=== PATIENT | female | born 1995 | race Caucasian/White ===

== ENCOUNTER → 2018-08-29 | Outpatient (REF) | payer OTHER | LOC: M SFHCLERA 18:26 | PROVIDERS: ATTEND Nurse Practitioner Family | DX: R53.81 Other malaise (principal) ==

== ENCOUNTER 2019-03-22 19:42 | Emergency (ER) | payer OTHER ==
[~2019-03-22] VITALS: Ht 165.1 cm; Wt 59.6 kg
[2019-03-22 19:43] VITALS: BP 168/82
[2019-03-22] MEDS ORDERED: SERT25TA85 PO (19:48)
[2019-03-22] MEDS ORDERED: NAPR-837 PO (20:25)
[2019-03-22] MEDS ORDERED: CYCL10TA PO (20:25)
[2019-03-22] MEDS ORDERED: CYCLOBENZAPRINE 10 MG TAB PO ONE (20:30)
[2019-03-22] MEDS ORDERED: NAPROXEN 250 MG TAB PO ONE (20:30)
== END 2019-03-22 20:39 | disposition home or self-care (01) ==
LOC: M ED 19:42
DX: S39.012A Strain of muscle, fascia and tendon of lower back, initial encounter (principal); M62.830 Muscle spasm of back; X50.1XXA Overexertion from prolonged static or awkward postures, initial encounter; Y92.9 Unspecified place or not applicable; Y93.9 Activity, unspecified; Y99.9 Unspecified external cause status; F32.9 Major depressive disorder, single episode, unspecified; Z79.899 Other long term (current) drug therapy

== ENCOUNTER → 2019-10-05 | Outpatient (REF) | payer OTHER ==
[~2019-10-05] MED LIST: CYCL10TA PO; FLUTISP; NAPR-837 PO; SERT25TA85 PO; SUDO30TA; VENL75CA47
== END ==
LOC: M SFHCLERA 17:16
PROVIDERS: ATTEND Nurse Practitioner Family
DX: R53.81 Other malaise (principal); R05 Cough; R50.9 Fever, unspecified; R51 Headache

== ENCOUNTER 2019-10-08 11:11 | Emergency (ER) | payer OTHER ==
[~2019-10-08] VITALS: Ht 165.1 cm; Wt 61.0 kg
[~2019-10-08 11:11] MED LIST changes: -FLUTISP; -SUDO30TA; -VENL75CA47
[2019-10-08] MEDS ORDERED: VENL75CA47 (11:17)
[2019-10-08] MEDS ORDERED: SUDO30TA (11:17)
[2019-10-08] MEDS ORDERED: FLUTISP (11:17)
[2019-10-08 11:56] LABS: BASO # 0.1 10^3/uL (0.0-0.2); BASO % 0.7 % (0.0-1.0); EOS # 0.2 10^3/uL (0.0-0.5); EOS % 1.9 % (0.0-3.0); HEMATOCRIT 40.4 % (36.0-47.0); HEMOGLOBIN 13.5 g/dl (12.0-15.5); LYMPH % 21.4 % (24.0-44.0); MEAN CORPUSCULAR HEMOGLOBIN 29.4 pg (27.0-33.0); MEAN CORPUSCULAR HGB CONC 33.4 g/dl (32.0-36.5); MONO # 0.9 10^3/uL (0.0-0.8); MONO % 9.8 % (0.0-5.0); NEUTROPHILS # 6.2 10^3/uL (1.5-8.5); NEUTROPHILS % 65.9 % (36.0-66.0); PLATELET COUNT, AUTOMATED 271 10^3/uL (150-450); RED BLOOD COUNT 4.59 10^6/uL (4.00-5.40); WHITE BLOOD COUNT 9.5 10^3/uL (4.0-10.0)
[2019-10-08 12:11] LABS: INFLUENZA A AMPLIFICATION NEGATIVE (NEGATIVE); INFLUENZA B AMPLIFICATION NEGATIVE (NEGATIVE)
[2019-10-08 12:27] LABS: BLOOD UREA NITROGEN 4 MG/DL (7-18); CALCIUM LEVEL 9.7 MG/DL (8.5-10.1); CARBON DIOXIDE LEVEL 26 MEQ/L (21-32); CHLORIDE LEVEL 108 MEQ/L (98-107); CREATININE FOR GFR 0.81 MG/DL (0.55-1.30); GLOMERULAR FILTRATION RATE > 60.0 (>60); GLUCOSE, FASTING 100 MG/DL (70-100); POTASSIUM SERUM 4.2 MEQ/L (3.5-5.1); SODIUM LEVEL 140 MEQ/L (136-145)
[2019-10-08 13:11] VITALS: BP 147/70
--- NOTE | 2019-10-08 16:35 | REP ---
REASON: Cough and fever. PRIORS: None. TWO-VIEW CHEST: FINDINGS: The superior mediastinal structures are midline. The cardiac silhouette is unremarkable in size, shape, and position. The diaphragmatic surfaces of the lungs are regular, and the costophrenic angles are clear. The pulmonary monzon are clear. The imaged osseous structures are intact. IMPRESSION: There is no acute cardiopulmonary disease. Electronically Signed by Ramin Montaño DO 10/08/2019 04:48 P
== END 2019-10-08 13:56 | disposition home or self-care (01) ==
LOC: M ED 11:11
DX: J06.9 Acute upper respiratory infection, unspecified (principal); B34.1 Enterovirus infection, unspecified; J45.909 Unspecified asthma, uncomplicated; F33.1 Major depressive disorder, recurrent, moderate; Z79.899 Other long term (current) drug therapy

== ENCOUNTER 2019-11-19 22:31 | Emergency (ER) | payer OTHER ==
[~2019-11-19] VITALS: Ht 165.1 cm; Wt 56.8 kg
[~2019-11-19 22:31] MED LIST changes: +CYCL-707 PO; -CYCL10TA PO; +FLUTISP; +SUDO30TA; +VENL75CA47
[2019-11-19] MEDS ORDERED: CIPR0.3S (22:37)
[2019-11-19] MEDS ORDERED: ALL10TAB29 (22:37)
[2019-11-19] MEDS ORDERED: ONDANSETRON 4 MG ORAL DISINTEGRATING TAB PO ONE (23:00)
[2019-11-19 23:20] LABS: BASO # 0.1 10^3/uL (0.0-0.2); BASO % 0.5 % (0.0-1.0); EOS # 0.1 10^3/uL (0.0-0.5); EOS % 0.5 % (0.0-3.0); HEMATOCRIT 39.6 % (36.0-47.0); HEMOGLOBIN 13.2 g/dl (12.0-15.5); LYMPH # 1.8 10^3/uL (1.5-5.0); LYMPH % 18.8 % (24.0-44.0); MEAN CORPUSCULAR HEMOGLOBIN 29.1 pg (27.0-33.0); MEAN CORPUSCULAR HGB CONC 33.3 g/dl (32.0-36.5); MEAN CORPUSCULAR VOLUME 87.4 fl (80.0-96.0); MONO % 10.2 % (0.0-5.0); NEUTROPHILS # 6.5 10^3/uL (1.5-8.5); NEUTROPHILS % 69.7 % (36.0-66.0); PLATELET COUNT, AUTOMATED 239 10^3/uL (150-450); RED BLOOD COUNT 4.53 10^6/uL (4.00-5.40); WHITE BLOOD COUNT 9.3 10^3/uL (4.0-10.0)
[2019-11-19 23:44] LABS: ALBUMIN 3.8 GM/DL (3.2-5.2); BILIRUBIN,DIRECT 0.1 MG/DL (0.0-0.2); BILIRUBIN,TOTAL 0.3 MG/DL (0.2-1.0); TOTAL PROTEIN 6.6 GM/DL (6.4-8.2)
[2019-11-19] MEDS ORDERED: ONDA4TAB6 PO (23:51)
[2019-11-20 00:14] VITALS: BP 141/87
== END 2019-11-20 00:21 | disposition home or self-care (01) ==
LOC: M ED 22:31
DX: R11.2 Nausea with vomiting, unspecified (principal); Z32.01 Encounter for pregnancy test, result positive; F32.9 Major depressive disorder, single episode, unspecified; Z79.899 Other long term (current) drug therapy
CPT/HCPCS: 36415; 80047; 80076; 81001; 83690; 84702; 85025; 87086; 99283; Q0162

== ENCOUNTER 2020-06-22 10:13 | Outpatient (CLI) | payer OTHER ==
[~2020-06-22] VITALS: Ht 167.6 cm; Wt 64.7 kg
[~2020-06-22 10:13] MED LIST changes: +CETI-24; +CIPR0.3S6; +CLAR10CA3 PO; +IBUP-1022 PO; +MACR100C43 PO; +NICO21PAT TD; +ONDA4TAB6 PO; +PATIENT COMMENT; +SERT-138 PO; +SERT50TA29 PO; -SUDO30TA; +SUDO30TA2; +TRIA1CR80 TOP; +sertraline PO
[2020-06-22 10:43] VITALS: BP 125/82
[2020-06-22 10:54] VITALS: BP 123/74
[2020-06-22 11:19] VITALS: BP 135/77
[2020-06-22 11:51] LABS: HEMATOCRIT 36.5 % (36.0-47.0); HEMOGLOBIN 11.8 g/dl (12.0-15.5); MEAN CORPUSCULAR HEMOGLOBIN 29.7 pg (27.0-33.0); MEAN CORPUSCULAR HGB CONC 32.3 g/dl (32.0-36.5); MEAN CORPUSCULAR VOLUME 91.9 fl (80.0-96.0); PLATELET COUNT, AUTOMATED 190 10^3/uL (150-450); RED BLOOD COUNT 3.97 10^6/uL (4.00-5.40); WHITE BLOOD COUNT 10.4 10^3/uL (4.0-10.0)
[2020-06-22 12:05] VITALS: BP 127/81
--- NOTE | 2020-06-22 12:05 | REP ---
INDICATION: Acute RUQ pain. 33 weeks . COMPARISON: None. TECHNIQUE: Real time chin scale ultrasound examination using curved array transducer. FINDINGS: Liver is normal in contour, size, and echogenicity without focal hepatic lesions identified. Pancreas is incompletely evaluated due to interposed bowel gas. The gallbladder is normal and without gallstones, wall thickening, or pericholecystic fluid. No biliary ductal dilatation is appreciated and the common bile duct measures 2.4 mm diameter. Right kidney is normal in reniform shape without hydronephrosis and measures 10.9 x 5.2 x 6.1 cm. No ascites in the visualized right upper quadrant. Live advanced gestation. heart rate equals 131 BPM. IMPRESSION: Normal limited right upper quadrant ultrasound <Electronically signed by Kevin Ly > 06/22/20 1202
[2020-06-22 12:25] LABS: ALBUMIN 2.7 GM/DL (3.2-5.2); ALT/SGPT 7 U/L (12-78); BILIRUBIN,TOTAL 0.3 MG/DL (0.2-1.0); BLOOD UREA NITROGEN 2 MG/DL (7-18); CALCIUM LEVEL 9.1 MG/DL (8.5-10.1); CARBON DIOXIDE LEVEL 28 MEQ/L (21-32); CHLORIDE LEVEL 108 MEQ/L (98-107); CREATININE FOR GFR 0.66 MG/DL (0.55-1.30); GLOMERULAR FILTRATION RATE > 60.0 (>60); GLUCOSE, FASTING 86 MG/DL (70-100); POTASSIUM SERUM 3.4 MEQ/L (3.5-5.1); SODIUM LEVEL 142 MEQ/L (136-145); TOTAL PROTEIN 6.1 GM/DL (6.4-8.2)
[2020-06-22] MEDS ORDERED: MAPA500T2 PO (12:34)
[2020-06-22] MEDS ORDERED: FERR325T3 PO (12:36)
[2020-06-22] MEDS ORDERED: VITA100T59 PO (12:36)
[2020-06-22] MEDS ORDERED: PRENTAB9 PO (12:36)
--- NOTE | 2020-06-22 12:51 | IPNPDOC ---
Text Note Date of Service The patient was seen on 06/22/20. NOTE 25 yo at ~34 weeks gestation presents to L&D with the complaint of RUQ pain and n/v since yesterday evening. She reports eating turkey and chili and cheese and then experiencing pain along with vomiting. This has since not improved. She is tolerating water without issues. She denies any fevers/chills, SOB, chest pain, dysuria, or constipation/diarrhea. She also denies any obstetric complaints to include bleeding, leakage of fluid, contractions, or decreased movement. Upon further questioning she reports significant GERD throughout her third trimester that is not being relieved by Tums. Vitals - VSS, afebrile, normotensive, non tachycardic General - AAOX3, sitting up in bed, NAD, pleasant and conversant Abdomen - Gravid uterus, no fundal tenderness. Mild tenderness to palpation in RUQ. No rebound or guarding. Negative Mackenzie's sign Extremities - No edema FHR: Cat I with moderate variability, +accels, no decels Labs: Test 06/22/20 11:41 Blood Urea Nitrogen 2 MG/DL (7-18) L Creatinine 0.66 MG/DL (0.55-1.30) Glomerular Filtration Rate > 60.0 (>60) Fasting Glucose 86 MG/DL (70-100) Calcium Level 9.1 MG/DL (8.5-10.1) Total Bilirubin 0.3 MG/DL (0.2-1.0) Aspartate Amino Transf (AST/SGOT) 14 U/L (7-37) Alanine Aminotransferase (ALT/SGPT) 7 U/L (12-78) L Total Protein 6.1 GM/DL (6.4-8.2) L Sodium Level 142 MEQ/L (136-145) Albumin 2.7 GM/DL (3.2-5.2) L Alkaline Phosphatase 164 U/L (45-117) H Potassium Level 3.4 MEQ/L (3.5-5.1) L Chloride Level 108 MEQ/L (98-107) H Carbon Dioxide Level 28 MEQ/L (21-32) Anion Gap 6 MEQ/L (8-16) L Laboratory Tests 06/22/20 11:41 Imaging: NAME: NIVIA PECK DATE OF : 1995 AGE: 25 SEX: F REPORT #: [id number] ROOM: [facility] TECHNOLOGIST: [facility] DOCTOR: NIKHIL MEYERS DO Ordered for Date&Time: 06/22/20 1130 cc: [~ rep ct ivnm] Service Date&Time: 06/22/20 1159 EXAMINATION REQUESTED: GALLBLADDER US REASON FOR PATIENT VISIT: HEADACHE; N/V; ELEVATED BP; PAIN IN RIB REASON FOR EXAM/COMMENT: Acute RUQ pain. 33 weeks . INDICATION: Acute RUQ pain. 33 weeks . COMPARISON: None. TECHNIQUE: Real time chin scale ultrasound examination using curved array transducer. FINDINGS: Liver is normal in contour, size, and echogenicity without focal hepatic lesions identified. Pancreas is incompletely evaluated due to interposed bowel gas. The gallbladder is normal and without gallstones, wall thickening, or pericholecystic fluid. No biliary ductal dilatation is appreciated and the common bile duct measures 2.4 mm diameter. Right kidney is normal in reniform shape without hydronephrosis and measures 10.9 x 5.2 x 6.1 cm. No ascites in the visualized right upper quadrant. Live advanced gestation. heart rate equals 131 BPM. IMPRESSION: Normal limited right upper quadrant ultrasound A/P: Suspect GERD and indigestion contributing to symptoms. No exam, laboratory, or imaging evidence of any acute intrabdominal process. Script for omeprazole ordered at patient's pharmacy of choice. Reassuring status. patient discharged home with return precautions. All questions answered. Nikhil Meyers DO VS,Barbara, I+O VS, Barbara, I+O Laboratory Tests 06/22/20 11:41 Vital Signs Date Time Temp Pulse Resp B/P (MAP) Pulse Ox O2 Delivery O2 Flow Rate FiO2 06/22/20 12:05 84 18 127/81 (96) 06/22/20 10:43 98.0 NIKHIL MEYERS DO Jun 22, 2020 12:51
== END 2020-06-22 12:40 | disposition home or self-care (01) ==
LOC: M LDO 10:13
PROVIDERS: ATTEND Obstetrics & Gynecology
DX: O26.893 Other specified pregnancy related conditions, third trimester (principal); R10.11 Right upper quadrant pain; R11.2 Nausea with vomiting, unspecified; R12 Heartburn; Z3A.33 33 weeks gestation of pregnancy
CPT/HCPCS: 36415; 59025; 76705; 80053; 85027; G0378; G0463

== ENCOUNTER 2020-07-10 20:09 | Outpatient (CLI) | payer OTHER ==
[~2020-07-10] VITALS: Ht 167.6 cm; Wt 65.7 kg
[~2020-07-10 20:09] MED LIST changes: +FERR325T3 PO; +MAPA500T2 PO; +PRENTAB9 PO; +VITA100T59 PO
[2020-07-10] MEDS ORDERED: PROMETHAZINE INJ 25 MG/ML VIAL (J2550) IV ONE (23:45)
[2020-07-10] MEDS ORDERED: BUTORPHANOL 2 MG/ML INJ (J0595) IV ONE (23:45)
--- NOTE | 2020-07-10 23:57 | IPNPDOC ---
Text Note Date of Service The patient was seen on 07/10/20. NOTE 25 yo at 37+3 weeks gestation presented to L&D with regular, painful contractions along with pelvic pressure. She denies any vaginal bleeding or leakage of fluid. She endorses excellent movement. 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 In addition, she has depression for which she sees behavioral health and for which she was on effexor at one point. She is GBS negative. Chaperoned by Yessica Ramos Vitals - VSS, afebrile, normotensive, non tachycardic General - AAOX3, sitting up in bed, uncomfortable with contractions Abdomen - Gravid uterus, no fundal tenderness Cervix - 3/50/-3. Repeat exam 2 hours later unchanged at 3/50/-3. FHR tracing - Cat I with moderate variability, +accels, no decels. Contractions regular at Q1-2 minutes, persisting for >2 hours Not actively in labor at this time due to her unchanged cervix. However, Edith is quite uncomfortable and sindy Q1-2 minutes. No clinical evidence of placental abruption (no bleeding, no abdominal pain or rigidity, no recent trauma) however this is also on the differential. Plan will be to observe overnight and administer IV analgesia (stadol) for therapeutic rest. Edith understands and agrees with plan of care. Repeat cervical exam at 0645 demonstrated no change. She remains 3/50/-3. Contractions have spaced considerably on toco. She has no acute pain. FHR has remained Cat I throughout her stay. Though there was decrease in baseline likely secondary to stadol. Will discharge home with return precautions. All patient questions answered. DO LUIGI Massey CHRISTOPHER J. DO Jul 10, 2020 23:57
[2020-07-11] MEDS ORDERED: LR 1,000 ML IV SCH
== END 2020-07-11 06:58 | disposition home or self-care (01) ==
LOC: M LDO 20:09
PROVIDERS: ATTEND Obstetrics & Gynecology
DX: O47.1 False labor at or after 37 completed weeks of gestation (principal); Z3A.37 37 weeks gestation of pregnancy
CPT/HCPCS: 59025; 96374; 96375; G0378; G0463; J0595

== ENCOUNTER 2020-07-13 12:32 | Outpatient (CLI) | payer OTHER ==
[~2020-07-13] VITALS: Ht 165.1 cm; Wt 66.7 kg
[2020-07-13 12:46] VITALS: BP 137/76
[2020-07-13] MEDS ORDERED: ANTA550C PO (12:52)
[2020-07-13] MEDS ORDERED: ANTA1CHW6 PO (12:52)
[2020-07-13 13:33] VITALS: BP 128/71
--- NOTE | 2020-07-13 13:50 | IPNPDOC ---
Obstetrical Progress Note Date of Service Jul 13, 2020 Subjective 25yo anjel [id number] @37+6. Presenting with c/o decreased movement, stating last movement at 0400. Denies bleeding, LOF, States irregular cramping. Objective Vital Signs Date Time Temp Pulse Resp B/P (MAP) Pulse Ox O2 Delivery O2 Flow Rate FiO2 07/13/20 12:46 97.5 79 16 137/76 (96) Assessment Heart Rate (FHR): 140 Variability: Moderate Accelerations: Positive Decelerations: None Tocometer Contractions: Yes Frequency: irregular Duration: less than 60 seconds Strength: palpated as mild Sterile Vaginal Examination Postion/Presentation: Cephalic presentation Assessment and Plan Age: 25 : 2 Term: 1 Pre-term: 0 Abortions: 0 Livin Weeks & Days 37+6 Status: Reassuring Group B Streptococcus: Negative Additional Comments 25yo anjel [id number] @37+6 called with concern for decreased movement, denies bleeding, lof, states irregular cramping KATHERIN 10.46 cephalic presentation RNST, irregular cramping, denied need for cervical exam Suspected condition not found [id number] Discharged to home with labor precautions, expressed understanding of reasons to return for care and movement counts. DEINSE ESTEVES CNM Jul 13, 2020 13:49
== END 2020-07-13 13:45 | disposition home or self-care (01) ==
LOC: M LDO 12:32
PROVIDERS: ATTEND Registered Nurse
DX: O36.8130 Decreased fetal movements, third trimester, not applicable or unspecified (principal); Z3A.37 37 weeks gestation of pregnancy
CPT/HCPCS: 59025; G0378; G0463

== ENCOUNTER 2020-07-16 14:28 | Outpatient (CLI) | payer OTHER ==
[~2020-07-16] VITALS: Ht 165.1 cm; Wt 65.2 kg
[~2020-07-16 14:28] MED LIST changes: +ANTA1CHW6 PO; +ANTA550C PO
[2020-07-16 14:41] VITALS: BP 132/81
--- NOTE | 2020-07-16 15:22 | IPNPDOC ---
Obstetrical Progress Note Date of Service Jul 16, 2020 Subjective 25yo at 38+2wks presenting for c/o ctx's since 0430 today. Denies LOF, DFM, or VB. Objective Vital Signs Date Time Temp Pulse Resp B/P (MAP) Pulse Ox O2 Delivery O2 Flow Rate FiO2 07/16/20 14:41 98.8 96 18 132/81 (98) Assessment Heart Rate (FHR): 140 Variability: Moderate Accelerations: Positive Decelerations: None Heart Rate Tracing: Category I Tocometer Contractions: Yes Frequency: irregular Sterile Vaginal Examination Dilation: 3 cm Effacement (%): 50% Station: -2 Cervical Consistency: Soft Cervical Position: Posterior Postion/Presentation: Cephalic presentation Assessment and Plan Status: Reassuring Additional Comments 25yo at 38+2wks presenting for c/o ctx's and found to have irregular ctx pattern on tocometry. status reassuring with reactive NST. SVE stable since last check 1 week ago. Patient not in active labor. Counseled on hydration and rest. Discussed FKCs and strict labor precautions. Patient to f/u in clinic tomorrow for scheduled YOLI appt. All questions answered. DANTE SCHULZ DO Jul 16, 2020 15:22
== END 2020-07-16 15:22 | disposition home or self-care (01) ==
LOC: M LDO 14:28
DX: O47.1 False labor at or after 37 completed weeks of gestation (principal); Z3A.38 38 weeks gestation of pregnancy
CPT/HCPCS: 59025; G0378; G0463

== ENCOUNTER 2020-07-18 19:52 | Outpatient (CLI) | payer OTHER ==
[~2020-07-18] VITALS: Ht 165.1 cm; Wt 65.3 kg
[2020-07-18] MEDS ORDERED: PROMETHAZINE INJ 25 MG/ML VIAL (J2550) IM ONE (22:45)
[2020-07-18] MEDS ORDERED: MORPHINE 10 MG/ML 1ML VIAL (J2270) IM ONE (22:45)
[2020-07-19] MEDS ORDERED: FAMO20TA PO (15:33)
== END 2020-07-19 01:03 | disposition home or self-care (01) ==
LOC: M LDO 19:52
PROVIDERS: ATTEND Obstetrics & Gynecology
DX: O42.92 Full-term premature rupture of membranes, unspecified as to length of time between rupture and onset of labor (principal); Z3A.39 39 weeks gestation of pregnancy
CPT/HCPCS: 59025; 96372; G0378; G0463; J2270

== ENCOUNTER 2020-07-19 14:42 | Inpatient (IN) | payer OTHER ==
[~2020-07-19] VITALS: Ht 165.1 cm; Wt 63.8 kg
[2020-07-19] VITALS (21 sets, daily range): BP systolic 108–145; BP diastolic 60–90
[2020-07-19] MEDS ORDERED: LACTATED RINGER'S 1000 ML IV STA (15:07)
[2020-07-19] MEDS: LR 1,000 ML IV SCH ×3 (15:07→23:07)
[2020-07-19] MEDS ORDERED: OXYTOCIN DRIP 30 UNITS in IV 1 EA IV SCH (15:15)
--- NOTE | 2020-07-19 15:32 | HPEPDOC ---
Obstetrical History & Physical General Date of Admission 07/19/2020 History of Present Illness 25 yo @ 38+5 by 1ST T us who is admitted for SROM at 1300 with clear fluids. patient has been sindy now for 24hrs, but has been 3 cm for 3 days. she reports regular movements and denies vaginal bleeding. she has no other concerns. Information Provided By: Patient Care Care: Good Care Dating Final EDC: Jul 28, 2020 Final EDC by: 1st trimester (US) LMP: Oct 13, 2019 1st Trimester Date: Dec 25, 2019 Weeks + Days: -9 (9w1d) Estimated Date of Confinement: Jul 28, 2020 EGA at Admission: 3 (38w5d) Antepartum Course Diagnos(e)s 1. Depression- did not take meds during 2. CF mutation on screen- FOB not tested ( inform peds after delivery) 3. Had chlamydia that was treated- NIKKI negative x3( per patient) Height (inches): 65 Pre- weight (lbs.): 120 Admission Weight (lbs.): 145 Change in Weight (lbs.): 25 Past Medical History Past Obstetrical History : Past Obstetrical History: Multigravida Date of Delivery: May 04, 2006 Type of Delivery: Spontaneous Vaginal Del. 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[employer] History: No pertinent history, History of STD Past Medical History Medical History Depression Surgical History: Other (LASIX) Family History Significant Family History: No pertinent family hx Social History Marital Status: Family situation: Spouse/partner home Psychosocial History: Depression * Smoker: non-smoker Alcohol: Denies Drugs: denies Abuse Violence Screening Have you been hit/kicked/slapp: No Have you been sexually assault: No Imunizations Tdap status: current Influenza Status: current Allergies Coded Allergies: No Known Allergies (Unverified , 07/13/20) Medications Scheduled Ascorbic Acid (Vitamin C) 100 Mg Tablet, 1 TAB PO DAILY Calcium Carb/Magnesium Hydrox (Antacid Chewable Tablet) 1 Each Tab.chew, 1 CHW PO BID No.137/Iron/Folic Acd ( Vitamin Tablet) 1 Each Tablet, 1 TAB PO DAILY Miscellaneous Medications Ferrous Sulfate (Ferrous Sulfate) 325 Mg Tablet.dr, 325 MG PO Physical Examination Physical Examination GENERAL: Alert and oriented times three. BREAST: . ABDOMEN: Gravid and non-tender to touch., TAUS Cephalic FETUS: Is vertex by sterile vaginal examination and TAUS HEART RATE: Regular rate and rhythm. LUNGS: nORMAL WORK OF BREATHING EXTREMITIES: No edema. SVE: 3//-2, SPEC: POOLING, NITRIZINE POSITIVE Pertinent Laboratoy Data Blood Type: O+ RBC Antibody Screen: Negative HIV: Negative Hepatitis B: Negative Hepatitis C: Unknown Rapid Plasma Reagin: Nonreactive Rubella: Immune Varicella: Immune Chlamydia/Gonorrhea: Positive (HAD 3 NEG NIKKI) Group B Streptococcus: Negative Cystic Fibrosis: Positive (HAS MUTATION, FOB NOT TESTED) Glucose Tolerance Test: 109 Anatomy Ultrasound Ultrasound Date: Mar 11, 2020 Placenta Location: Right Lateral Normal Anatomy: Yes Estimated Weight (grams): 3000 Steroid Therapy Steroid Therapy: No Vaginal Examination Dilation: 3 cm Effacement: 70% Station: -2 Cervical Consistency: Soft Cervical Position: Middle Presentation: Cephalic presentation Assessment Heart Rate (FHR): 130 Variability: Moderate Accelerations: Positive Decelerations: None Tocometer Contractions: Yes Frequency: irregular Duration: less than 60 seconds Strength: palpated as moderate Multi-drug resistant Organism: No history of MDRO Assessment/Plan Assessment 25 yo @ 38+5 by 1ST T us who is admitted for SROM at 1300 with clear fluids. SROM Notable for pooling and positive nitrazine test. Cephalic by us. SVE 3/75/-2. Reactive NST on admission. RH positive, GBS Neg. 1. Depression- did not take meds during 2. CF mutation on screen- FOB not tested ( inform peds after delivery) 3. 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 Diet: clear. Group B Streptococcus (GBS) negative. Labs and intravenous (IV) per unit protocol. Counseled on Pitocin for augmentation of labor Lactated Ringers (LR): Bolus 1000 mL, then at 125 mL/hr. Anticipate normal spontaneous delivery (). C-S as appropriate. Labor and Delivery Counseling REVIEWED CONSENT FOR VAGINAL DELIVERY WHICH IS DELIVERY THROUGH VAGINA. YOU MAY REQUIRE AUGMENTATION WITH PITOCIN YOU MAY REQUIRE EPISIOTOMY TO ALLOW BABY TO DELIVER VAGINALLY WHEN PUSHING BECOMES INEFFECTIVE OR IF DELIVERY NEEDS TO BE EXPEDITED FOR REASONS. CS MAY BE REQUIRED ON URGENT BASIS DUE TO ENVIRONMENT OR MATERNAL REASONS WHEN DELIVERY NEEDS TO BE EXPEDITED. RISKS TO INTERVENTION IS VAGINAL LACERATIONS REPAIR OF EPISIOTOMY CERVICAL REPAIR BOWEL OR BLADDER INJURY RISK OF PP HEMORRHAGE REQUIRE BLOOD TRANSFUSION RISK HYSTERECTOMY RISK ADMISSION NICU, RISK TACHYSYSTOLE RISK OF SCRATCHES , HEMATOMAS , INTRACRANIAL BLEED. PRESENTLY CATEGORY 1 STRIP SAFE TO PROCEED JOHN STUART MD Jul 19, 2020 15:32
[2020-07-19] MEDS ORDERED: FAMO20TA PO (15:33)
[2020-07-19 16:00] LABS: HEMATOCRIT 39.5 % (36.0-47.0); HEMOGLOBIN 12.7 g/dl (12.0-15.5); MEAN CORPUSCULAR HEMOGLOBIN 29.5 pg (27.0-33.0); MEAN CORPUSCULAR HGB CONC 32.2 g/dl (32.0-36.5); MEAN CORPUSCULAR VOLUME 91.9 fl (80.0-96.0); PLATELET COUNT, AUTOMATED 201 10^3/uL (150-450); WHITE BLOOD COUNT 11.4 10^3/uL (4.0-10.0)
[2020-07-19 16:36] LABS: ALBUMIN 2.9 GM/DL (3.2-5.2); ALT/SGPT 11 U/L (12-78); BILIRUBIN,TOTAL 0.6 MG/DL (0.2-1.0); BLOOD UREA NITROGEN 3 MG/DL (7-18); CALCIUM LEVEL 9.2 MG/DL (8.5-10.1); CARBON DIOXIDE LEVEL 23 MEQ/L (21-32); CHLORIDE LEVEL 108 MEQ/L (98-107); CREATININE FOR GFR 0.64 MG/DL (0.55-1.30); GLOMERULAR FILTRATION RATE > 60.0 (>60); GLUCOSE, FASTING 75 MG/DL (70-100); POTASSIUM SERUM 3.3 MEQ/L (3.5-5.1); SODIUM LEVEL 141 MEQ/L (136-145); TOTAL PROTEIN 6.5 GM/DL (6.4-8.2)
[2020-07-19] MEDS ORDERED: FENTANYL 2MCG/ML ROPIVACAINE 0.2% IN 0.9% NACL 100ML IVBAG As Ordered ONE (16:39)
[2020-07-19] MEDS ORDERED: EPIDURAL/PCA KEYS XX PRN (17:00)
[2020-07-19] MEDS: FENTANYL/ROPIVACAINE/NACL BAG 100 ML EPIDURAL SCH (17:00)
[2020-07-19] MEDS ORDERED: LACTATED RINGER'S 1000 ML IV PRN (17:00)
[2020-07-19] MEDS ORDERED: EPIDURAL COMMENT XX SCH (17:00)
[2020-07-19] MEDS ORDERED: NALOXONE INJ 0.4MG/1ML VIAL (J2310 PER 1MG) IV PRN (17:00)
[2020-07-19] MEDS ORDERED: REFRIGERATOR IV KEYS XX PRN (17:00)
[2020-07-19] MEDS ORDERED: diphenhydrAMINE 50MG/ML VIAL (J1200) IV PRN (17:00)
[2020-07-19] MEDS ORDERED: ePHEDrine SULFATE 25 MG/5 ML(5MG/ML) SYRINGE IV PRN (17:00)
[2020-07-19] MEDS ORDERED: ONDANSETRON 4MG/2ML VIAL IV PRN (17:00)
[2020-07-19 19:39] LABS: CREATININE,RANDOM URINE 59.3 MG/DL; TOTAL PROTEIN,RANDOM URINE 18.2 MG/DL (0.0-12.0)
[2020-07-19] MEDS ORDERED: PANTOPRAZOLE SODIUM 40 MG in D5W 50 ML IV SCH (19:45)
[2020-07-19] MEDS ORDERED: PANTOPRAZOLE 40MG VIAL (C9113 PER 1) IV ONE (20:30)
[2020-07-20] VITALS (12 sets, daily range): BP systolic 122–145; BP diastolic 59–86
[2020-07-20] MEDS ORDERED: ACETAMINOPHEN 500 MG TAB PO PRN (00:15)
[2020-07-20] MEDS: LR 1,000 ML IV SCH (00:22)
[2020-07-20] MEDS: FENTANYL/ROPIVACAINE/NACL BAG 100 ML EPIDURAL SCH (00:49)
[2020-07-20] MEDS ORDERED: ANUSOL HC CREAM 30GM TOP PRN (03:15)
[2020-07-20] MEDS ORDERED: BENZOCAINE 20% HEMORRHOIDAL OINTMENT 28GM TUBE TOP PRN (03:15)
[2020-07-20] MEDS ORDERED: DOCUSATE SODIUM 100MG CAPSULE PO PRN (03:15)
--- NOTE | 2020-07-20 03:24 | DNPDOC ---
[facility] Delivery Note Delivery Note DATE OF DELIVERY: 07/20/2020 PREDELIVERY DIAGNOSIS: 38-6/7 weeks' gestation and labor. POST DELIVERY DIAGNOSIS: Delivered. PROCEDURE: Spontaneous vaginal delivery. KETTLE FIRER: Dr. John Stuart ANESTHESIA: Epidural. ESTIMATED BLOOD LOSS: 150 mL. FINDINGS: 8 pound 0 ounce female , Score 8/9, no nuchal cord times . DELIVERY SUMMARY: Patient is a 25-year-old 2 now para 2 who was admitted to labor and delivery for SROM. Baby girl head was delivered without difficulty over intact perineum in straight OA position. The nose and mouth were bulb suctioned. no nuchal cord was noted. The shoulders were then delivered without difficulty. Cord was then clamped x2 and cut by FOB after 1 min of delayed cord clamping. Infant was placed on mother's belly. Pitocin bolus was started. Perineum was inspected and found to have no laceration. small periurethral skin abrasion noted,, and was hemostatic. The placenta was then delivered spontaneously intact. Cord had a 3 vessel cord. EBL was 150mL. The vagina and perineum were reinspected and no further lacerations were found and hemostasis was good. Fundus was firm. Patient tolerated delivery well. JOHN STUART MD Jul 20, 2020 03:24
[2020-07-20] MEDS: IBUPROFEN 800 MG TAB PO PRN ×3 (04:44→23:31)
[2020-07-20] MEDS: PRENATAL VITAMINS CHEWABLE TABLET PO SCH (07:32)
[2020-07-20] MEDS: ACETAMINOPHEN 500 MG TAB PO PRN ×2 (07:32→17:32)
[2020-07-21] MEDS: ACETAMINOPHEN 500 MG TAB PO PRN ×2 (05:19→15:14)
[2020-07-21 06:02] VITALS: BP 117/82
--- NOTE | 2020-07-21 07:13 | IPNPDOC ---
Progress Note Date of Service: Jul 21, 2020 Day#: 1 Progress Note Item Value Date Time White Blood Count 11.4 10^3/uL H 07/19/20 1554 Red Blood Count 4.30 10^6/uL 07/19/20 1554 Hemoglobin 12.7 g/dl 07/19/20 1554 Hematocrit 39.5 % 07/19/20 1554 Mean Corpuscular Volume 91.9 fl 07/19/20 1554 Mean Corpuscular Hemoglobin 29.5 pg 07/19/20 1554 Mean Corpuscular Hemoglobin Concent 32.2 g/dl 07/19/20 1554 Red Cell Distribution Width 14.4 % 07/19/20 1554 Platelet Count 201 10^3/uL 07/19/20 1554 Nucleated Red Blood Cells % (auto) 0.0 % 07/19/20 1554 SUBJECT: 25 year-old 2 now Para 2 status post uncomplicated spontaneous vaginal delivery at 38.5 weeks' at approximately on 07/19/20 of a female 8 pounds 0 ounces 3630 grams) doing well day #1 . She has been ambulating, voiding spontaneously without issue and tolerating regular diet. Breast feeding without issue. Reports lochia is [like a normal period]. Patient is ambulating well. [Reports some cramping with . Denies any pain. Voiding and stooling without difficulty]. OBJECTIVE: VITAL SIGNS: Within normal limits, afebrile. Alert and oriented times three. Breath sounds clear to auscultation. Heart rate: Regular rate and rhythm, no murmurs, rubs or gallops. Abdomen: Fundus firm at U-2. Soft, NTTP. [Minimal] lochia. ASSESSMENT: 25 year-old 2 now Para 2 status post uncomplicated spontaneous vaginal delivery after presenting in active labor with spontaneous rupture of membranes (SROM), delivered 38.5 weeks', doing well on day 1 . Vitals within normal limits, afebrile, hemodynamically stable with no evidence of infection. ADMITTED HISTORY GHTN W/OUT SEVERE FEATURES EPIDURAL FEMALE INFANT 8/9 . PLAN: 1. Discharge to home today. 2. Tylenol and Motrin for pain. 3. Encourage breast feeding and ambulation. 4. CONTROL DISCUSS AT PP VISIT . 5. Routine PP visit in 6 weeks in clinic. 6. Discussed return precautions at length. VS, I&O, 24H, Fishbone Vital Signs/I&O Vital Signs Date Time Temp Pulse Resp B/P (MAP) Pulse Ox O2 Delivery O2 Flow Rate FiO2 07/21/20 06:02 98.2 60 14 117/82 (94) 98 Room Air Zbigniew Burgos MD Jul 21, 2020 07:11
[2020-07-21] MEDS ORDERED: IBUP80TA PO (07:16)
[2020-07-21] MEDS ORDERED: DOK1CAP7 PO (07:16)
[2020-07-21] MEDS: PRENATAL VITAMINS CHEWABLE TABLET PO SCH (07:22)
[2020-07-21] MEDS: IBUPROFEN 800 MG TAB PO PRN (11:54)
== END 2020-07-21 18:30 | disposition home or self-care (01) | DRG 807 ==
LOC: M LDO 14:42 → M LDI 15:09 → M OBS 07-20 05:26
PROVIDERS: ADMIT Obstetrics & Gynecology; ATTEND Obstetrics & Gynecology
PROC: 10E0XZZ Delivery of Products of Conception, External Approach (ICD-10-PCS; principal; 2020-07-20)
DX: O14.04 Mild to moderate pre-eclampsia, complicating childbirth (principal); Z37.0 Single live birth; Z3A.38 38 weeks gestation of pregnancy

== ENCOUNTER 2021-05-12 20:36 | Outpatient (CLI) | payer OTHER ==
[~2021-05-12] VITALS: Ht 165.1 cm; Wt 58.5 kg
[~2021-05-12 20:36] MED LIST changes: +DOK1CAP4 PO; +FAMO20TA PO; +IBUP80TA PO
[2021-05-12 20:54] VITALS: BP 129/68
[2021-05-12] MEDS ORDERED: LR 1,000 ML IV ONE (21:10)
[2021-05-12] MEDS ORDERED: LR 1,000 ML IV SCH (21:10)
[2021-05-12] MEDS ORDERED: CYCLOBENZAPRINE 5MG TABLET PO ONE ×2 (22:30→22:35)
[2021-05-12 22:40] VITALS: BP 128/76
--- NOTE | 2021-05-12 22:56 | IPNPDOC ---
Text Note Date of Service The patient was seen on 05/12/21. NOTE Item Value Date Time Urine Color YELLOW 05/12/212050 Urine Appearance CLOUDY H 05/12/212050 Urine pH 6.0 UNITS 05/12/212050 Urine Specific [place] 1.015 05/12/212050 Urine Protein NEGATIVE mg/dL 05/12/212050 Urine Glucose (UA) NEGATIVE mg/dL 05/12/212050 Urine Ketones NEGATIVE mg/dL 05/12/212050 Urine Blood 2+ H 05/12/212050 Urine Nitrite NEGATIVE 05/12/212050 Urine Bilirubin NEGATIVE 05/12/212050 Urine Urobilinogen 4.0 mg/dL H 05/12/212050 Urine Leukocyte Esterase TRACE H 05/12/212050 Urine WBC (Auto) 5 /HPF H 05/12/212050 Urine RBC (Auto) 117 /HPF H 05/12/212050 Urine Hyaline Casts (Auto) 0 /LPF 05/12/212050 Urine Bacteria (Auto) NEGATIVE 05/12/212050 Urine Squamous Epithelial Cells 5 /HPF 05/12/212050 Urine Amorphous Sediment SMALL H 05/12/212050 Urine Mucus (Auto) SMALL 05/12/21205005/12/21 25 yo LMP 10/03/20 EDC BY EARLY US 11.5 WEEKS 07/10/21 PATIENT NOW 31.5 WEEKS HAD ACUTE ONSET LEFT FLANK PAIN WHILE EATING PAIN SO BAD HAD TO LIE DOWN. FKC NORMAL NO URINARY SYMPTOMS NO HISTORY KIDNEY STONES RISK FACTORS SHORT INTERVAL DEPRESSION NO MEDICATION SCIATICA DOING PT EXAMINATION DISTRESSED RUBBING LEFT LOWER FLANK PAIN SCALE 5/10 REST EXAMINATION NORMAL ATRAUMATIC PERRLA CHEST CLEAR TO BASES HEART NO MURMUR, NORMAL RHYTHM NORMAL RATE BACK SYMMETRIC HARD KNOTED AREA LOWER LEFT AT UPPER END ISCHIAL CREST. NST CATEGORY 1 PLAN HYDRATE IV FLUIDS URINE FOR MICRO AND REFLEX TESTING RENAL US FOR JETS AND STONE IMPRESSION LOW FLANK SPASM IF ALL NEGATIVE FLEXERIL WARM COMPRESS MASSAGE TYLENOL FOR PAIN KEEP APPOINTMENT WEDNESDAY AT OB. REVIEWED RENAL US NO STONE NORMAL URETERAL JETS NORMAL KIDNEYS. PLANNED DISCHARGE UNDELIVERED VS,Fishbone, I+O VS, Fishbone, I+O Vital Signs Date Time Temp Pulse Resp B/P (MAP) Pulse Ox O2 Delivery O2 Flow Rate FiO2 05/12/21 20:54 97.3 71 18 129/68 (88) Zbigniew Burgos MD May 12, 2021 22:45
--- NOTE | 2021-05-13 00:21 | REPVR ---
PROCEDURE INFORMATION: Exam: US Retroperitoneal Limited, Kidneys Exam date and time: 05/12/2021 10:21 PM Age: 26 years old Clinical indication: Abdominal pain; Flank; Left; ; Additional info: R/O kidney stones TECHNIQUE: Imaging protocol: Real-time ultrasound of the retroperitoneum with image documentation. Examination was focused on the kidneys. COMPARISON: None FINDINGS: RIGHT The right kidney measures 10.7 x 4.3 by 5.2 cm. Right renal echogenicity is within normal limits. Right renal cortical thickness is preserved. No echogenic shadowing right renal calculi. No hydronephrosis. No perinephric fluid is seen. Color flow is seen at the right renal hilum. No renal lesion or cyst is seen. LEFT The left kidney measures 11.1 x 5.2 by 4.9 cm. Left renal echogenicity is within normal limits. Cortical thickness is preserved. No perinephric fluid is seen. No echogenic shadowing left renal calculi. There is no hydronephrosis. Color flow is seen at the left renal hilum. No cystic or solid lesion is seen. BLADDER The urinary bladder measures approximately 10.5 x 8.6 by 9.4 cm, for an approximate volume of 611 cc. Postvoid residual was not evaluated on this study. No asymmetric urinary bladder wall thickening is seen. No perivesical fluid is seen. Ureteral jets are not identified bilaterally with a scanning time of over 5 minutes. OTHER Incidentally noted, the patient is . cardiac activity is measured at 141 bpm. The entire uterus, position and anatomy and placenta are not evaluated on this study. IMPRESSION: Sonographic appearance of the kidneys is within normal limits. There is no hydronephrosis or echogenic renal calculi. Ureteral jets are not identified at the urinary bladder, likely a technical artifact. Other findings discussed above. Electronically signed by: Marcelo Dickinson On 05/13/2021 00:20:36 AM
== END 2021-05-12 22:52 | disposition home or self-care (01) ==
LOC: M LDO 20:36
PROVIDERS: ATTEND Obstetrics & Gynecology
DX: O26.893 Other specified pregnancy related conditions, third trimester (principal); M54.50 Low back pain, unspecified; Z3A.31 31 weeks gestation of pregnancy
CPT/HCPCS: 59025; 76775; 81001; 87086; G0378; G0463

== ENCOUNTER 2021-07-03 20:01 | Inpatient (IN) | payer OTHER ==
[~2021-07-03] VITALS: Ht 165.1 cm; Wt 61.2 kg
[2021-07-03 20:17] VITALS: BP 147/84
[2021-07-03] MEDS ORDERED: CARBOPROST TROMETHAMINE 250 MCG/ML AMP IM PRN (20:25)
[2021-07-03] MEDS ORDERED: LIDOCAINE 1% MDV 20ML VIAL INFIL PRN (20:25)
[2021-07-03] MEDS ORDERED: TRANEXAMIC ACID INJection 1,000 MG in NS 100 ML IV PRN (20:25)
[2021-07-03] MEDS ORDERED: OXYTOCIN DRIP 30 UNITS in IV 1 EA IV PRN ×4 (20:25)
[2021-07-03] MEDS ORDERED: METHYLERGONOVINE MALEATE 0.2 MG/ML VIAL (J2210) IM PRN (20:25)
[2021-07-03] MEDS ORDERED: LR 1,000 ML IV SCH (20:25)
[2021-07-03 21:32] LABS: HEMOGLOBIN 12.6 g/dl (12.0-15.5); MEAN CORPUSCULAR HEMOGLOBIN 29.5 pg (27.0-33.0); MEAN CORPUSCULAR HGB CONC 33.2 g/dl (32.0-36.5); PLATELET COUNT, AUTOMATED 195 10^3/uL (150-450); RED BLOOD COUNT 4.27 10^6/uL (4.00-5.40); WHITE BLOOD COUNT 10.4 10^3/uL (4.0-10.0)
[2021-07-03] MEDS ORDERED: OXYTOCIN DRIP 30 UNITS in IV 1 EA IV SCH (22:25)
[2021-07-03 22:59] VITALS: BP 124/79
[2021-07-03] MEDS ORDERED: LACTATED RINGER'S 1000 ML IV STA (23:08)
[2021-07-03 23:29] VITALS: BP 114/64
[2021-07-04] VITALS (33 sets, daily range): BP systolic 84–157; BP diastolic 47–101
[2021-07-04] MEDS ORDERED: FENTANYL 2MCG/ML ROPIVACAINE 0.2% IN 0.9% NACL 100ML IVBAG As Ordered ONE (00:37)
[2021-07-04] MEDS ORDERED: EPIDURAL/PCA KEYS XX PRN (01:08)
[2021-07-04] MEDS ORDERED: NALOXONE INJ 0.4MG/1ML VIAL (J2310 PER 1MG) IV PRN (01:08)
[2021-07-04] MEDS ORDERED: REFRIGERATOR IV KEYS XX PRN (01:08)
[2021-07-04] MEDS ORDERED: LACTATED RINGER'S 1000 ML IV PRN (01:08)
[2021-07-04] MEDS ORDERED: diphenhydrAMINE 50MG/ML VIAL (J1200) IV PRN (01:08)
[2021-07-04] MEDS ORDERED: FENTANYL/ROPIVACAINE/NACL BAG 100 ML EPIDURAL SCH (01:08)
[2021-07-04] MEDS ORDERED: ONDANSETRON 4MG/2ML VIAL IV PRN (01:08)
[2021-07-04] MEDS ORDERED: EPIDURAL COMMENT XX SCH (01:08)
[2021-07-04] MEDS: ePHEDrine SULFATE 25 MG/5 ML(5MG/ML) SYRINGE IV PRN ×2 (03:31→03:34)
[2021-07-04] MEDS ORDERED: DIBUCAINE 1% OINTMENT 30GM TOP PRN (05:40)
[2021-07-04] MEDS ORDERED: DOCUSATE SODIUM 100MG CAPSULE PO PRN (05:40)
[2021-07-04] MEDS ORDERED: ACETAMINOPHEN TAB 650MG DOSE (2X325MG) PO PRN (05:40)
[2021-07-04] MEDS ORDERED: OXYTOCIN DRIP 30 UNITS in IV 1 EA IV SCH (05:40)
[2021-07-04] MEDS ORDERED: IBUPROFEN 600MG TAB PO PRN (05:40)
[2021-07-04] MEDS ORDERED: METHYLERGONOVINE MALEATE 0.2 MG TAB PO PRN (05:40)
[2021-07-04] MEDS: PRENATAL VITAMINS CHEWABLE TABLET PO SCH (09:00)
[2021-07-04] MEDS: ACETAMINOPHEN 500 MG TAB PO PRN ×2 (13:12→19:40)
[2021-07-04] MEDS: IBUPROFEN 800 MG TAB PO PRN (17:27)
[2021-07-05] MEDS: IBUPROFEN 800 MG TAB PO PRN ×2 (01:28→11:39)
[2021-07-05] MEDS: ACETAMINOPHEN 500 MG TAB PO PRN (05:53)
[2021-07-05 06:00] VITALS: BP 126/70
[2021-07-05] MEDS: PRENATAL VITAMINS CHEWABLE TABLET PO SCH (08:37)
[2021-07-05] MEDS ORDERED: INFLUENZA QUADRIVALENT PF VACCINE 0.5ML SYRINGE IM ONE (09:00)
== END 2021-07-05 14:06 | disposition home or self-care (01) | DRG 807 ==
LOC: M LDI 20:01 → M OBS 07-04 08:09
PROVIDERS: ADMIT Advanced Practice Midwife; ATTEND Advanced Practice Midwife
PROC: 3E033VJ Introduction of Other Hormone into Peripheral Vein, Percutaneous Approach (ICD-10-PCS; 2021-07-03)
PROC: 10E0XZZ Delivery of Products of Conception, External Approach (ICD-10-PCS; principal; 2021-07-04)
PROC: 0HQ9XZZ Repair Perineum Skin, External Approach (ICD-10-PCS; 2021-07-04)
PROC: 10907ZC Drainage of Amniotic Fluid, Therapeutic from Products of Conception, Via Natural or Artificial Opening (ICD-10-PCS; 2021-07-04)
DX: O40.3XX0 Polyhydramnios, third trimester, not applicable or unspecified (principal); Z37.0 Single live birth; Z3A.39 39 weeks gestation of pregnancy; Z20.822 Contact with and (suspected) exposure to COVID-19; O76 Abnormality in fetal heart rate and rhythm complicating labor and delivery; O70.0 First degree perineal laceration during delivery